=== PATIENT | female | born 1945 | race Caucasian/White ===

== ENCOUNTER 2016-08-16 13:16 | Inpatient (IN) ==
--- NOTE | 2016-08-16 13:58 | PROVIDER DOCUMENTATION ---
HPI-Neurological Disorder - General Chief Complaint: Stroke-Like Symptoms Stated Complaint: STROKE LIKE SX Time Seen by Provider: 08/16/16 13:35 Source: patient Allergies/Adverse Reactions: Patient Allergies Allergy/AdvReac Type Severity Reaction Status Date / Time No Known Allergies Allergy Verified 08/16/16 14:10 Home Medications: Home Medication List Medication Instructions Recorded Confirmed Last Taken Type Ibuprofen [Advil] 200 mg PO BID 08/16/16 08/16/16 Unknown History Omeprazole [Prilosec] 20 mg PO DAILY@0700 08/16/16 08/16/16 Unknown History - History of Present Illness-Neuro Nature of Presenting Problem: 70 y/o WF c no past medical history, c/o weakness on the left side and facial drooping of the left that began at 1930 last night. States she thought she was just tired from the day and symptoms would resolve. Symptoms have remained the same. First noticed the weakness after getting out of the shower. Not currently on any medications. Denies headache, changes in vision, chest pain, sob, abdominal pain, nausea, vomiting or diarrhea. No history of cardiac disease or stroke in the family. States she is active, working in her garden almost every day. Non smoker. Has a limping gait, stating the left foot feels as if it was asleep. Review of Systems - Adult - REVIEW OF SYSTEMS - ADULT Constitutional: reports: no symptoms reported. denies: chills, fever, fatique Eyes: reports: no symptoms reported. denies: decreased vision, blurred vision, double vision, eye pain Ears, Nose, Mouth & Throat: reports: no symptoms reported. denies: ear pain, nose pain, throat pain Cardiovascular: reports: no symptoms reported. denies: chest pain, palpitations Respiratory: reports: no symptoms reported. denies: cough, shortness of breath Gastrointestinal: reports: no symptoms reported. denies: abdominal pain, diarrhea, nausea, vomiting Genitourinary: reports: no symptoms reported. denies: dysuria, discharge, frequency, incontinence Musculoskeletal: reports: no symptoms reported. denies: muscle aches Integumentary: reports: no symptoms reported. denies: rash Neurological: reports: see HPI, loss of balance, numbness, paresthesia, slurred speech, other (left sided weakness). denies: ataxia, dizziness/vertigo, headache/migraines Psychiatric: reports: no symptoms reported Endocrine: reports: no symptoms reported Hematologic/Lymphatic: reports: no symptoms reported Allergic/Immunologic: reports: no symptoms reported All Other Systems: Reviewed and Negative Past History - Adult - PAST MEDICAL HISTORY-ADULT Review of Records: reports: Old Records Reviewed, Nursing Assessment Review, Medications Reviewed, Social history reviewed & non-contributory. Major Childhood Illnesses: reports: denies history Cardiovascular: reports: denies history Respiratory: reports: denies history Gastrointestinal: reports: denies history Obstetrical/Gynecological: reports: denies history Genitourinary: reports: denies history Musculoskeletal: reports: denies history Neurological: reports: denies history Endocrine/Immune: reports: denies history Other Conditions: reports: denies history - PRIOR SURGERIES/PROCEDURES Surgical/Procedure History: reports: reviewed, not pertinent - IMMUNIZATION STATUS Childhood Immunizations: See Nurse Assessment Flu Vaccine: See Nurse Assessment - FAMILY HISTORY Family History: reviewed, not pertinent - SOCIAL HISTORY Smoking: denies Substance Use: none/never Alcohol Use Frequency: never Living Situation: family Physical Exam- Neurological - Physical Exam-Neuro Initial Vital Signs Reviewed: Yes General Appearance: appears well, alert, no apparent distress Eye Exam: right eye: normal inspection, bilateral eye: PERRL, EOMI, other (left eye lid droop) HENMT: normocephalic/atraumatic, moist mucous membranes, TMs normal, pharynx normal, other (left facial droop and left tongue deviation) Head Injury: no evidence of injury Neck: non-tender, full range of motion, supple, normal inspection Respiratory: chest non-tender, lungs clear, normal breath sounds, no pleuratic chest pain, no respiratory distress, no accessory muscle use. negative: respiratory distress, decreased breath sounds, accessory muscle use, crackles, rales, rhonchi, wheezing Cardiovascular: normal peripheral pulses, regular rate, rhythm, no edema, no gallop, no murmur Abdominal Exam: normal bowel sounds, non tender, soft, no organomegaly, no pulsatile mass. negative: distended, guarding, rigid, rebound, tenderness Peripheral Pulses: radial (R): 2+, radial (L): 2+, dorsalis-pedis (R): 2+, dorsalis-pedis (L): 2+ Extremity: normal range of motion, non-tender, normal inspection, other ( strength 3/5 on the left as compared to 5/5 on the right for both upper and lower extremities.) collar baster Exam: normal hearing, normal speech, PERRL, facial asymmetry, facial droop, tongue deviation to L. negative: abnormal pupil position, gaze palsy, hearing deficit (R), hearing deficit (L) Motor/Sensory: no motor deficit, no sensory deficit, no pronator drift Neurologic: motor weakness, sensory deficit Integumentary: normal color, normal turgor, warm/dry Psych/Mental Status: normal mood/affect, normal thought content, normal thought process, oriented x 3 - Glascow Coma Scale Best Eye Response: (4) open spontaneously Best Verbal Response: (5) oriented Best Motor Response: (6) obeys commands Progress - PLAN OF CARE/RESULTS Progress/Plan/Lab Results: Vital Signs - 8 hr 08/16/16 13:27 Temperature 98.1 F Pulse Rate 90 Respiratory Rate 16 Blood Pressure 135/117 O2 Sat by Pulse Oximetry 98 Laboratory Results - last 24 hr 08/16/16 08/16/16 08/16/16 13:54 13:54 13:54 WBC 5.45 RBC 4.73 Hgb 14.0 Hct 41.6 MCV 87.9 MCH 29.6 MCHC 33.7 RDW Std Deviation 13.4 Plt Count 222 MPV 10.2 Immature Gran % (Auto) 0.0 Neut % (Auto) 53.5 Lymph % (Auto) 34.5 [place] % (Auto) 9.4 H Eos % (Auto) 2.0 Baso % (Auto) 0.6 Immature Gran # (Auto) 0.00 Neut # (Auto) 2.92 Lymph # (Auto) 1.88 [place] # (Auto) 0.51 Eos # (Auto) 0.11 Baso # (Auto) 0.03 Sodium 136 Potassium 5.9 H Chloride 99 Carbon Dioxide 18 L Anion Gap 19 BUN 17 Creatinine 1.1 H Estimated GFR/1.73 m2 49 BUN/Creatinine Ratio 15 Glucose 131 H Calculated Osmolality 275 Calcium 9.2 Total Bilirubin 0.19 L AST 45 H ALT 14 Alkaline Phosphatase 82 Troponin T < 0.010 Total Protein 7.0 Albumin 4.1 Globulin 2.9 Albumin/Globulin Ratio 1.4 Urine Source Urine Color Urine Turbidity Urine pH Ur Specific [place] Urine Protein Ur Glucose (Stick) Ur Ketones (Stick) Urine Blood Urine Nitrite Urine Bilirubin Urobilinogen Dipstick Urine Leukocytes Urine WBC (Auto) Urine RBC (Auto) U Epithel Cells (Auto) Urine Bacteria (Auto) Urine Opiates Screen Ur Oxycodone Screen Ur Methadone, Qual Ur Barbiturates Screen Ur Phencyclidine Scrn Ur Amphetamines Screen U Benzodiazepines Scrn Urine Cocaine Screen U Cannabinoids Screen 08/16/16 08/16/16 15:50 15:50 WBC RBC Hgb Hct MCV MCH MCHC RDW Std Deviation Plt Count MPV Immature Gran % (Auto) Neut % (Auto) Lymph % (Auto) [place] % (Auto) Eos % (Auto) Baso % (Auto) Immature Gran # (Auto) Neut # (Auto) Lymph # (Auto) [place] # (Auto) Eos # (Auto) Baso # (Auto) Sodium Potassium Chloride Carbon Dioxide Anion Gap BUN Creatinine Estimated GFR/1.73 m2 BUN/Creatinine Ratio Glucose Calculated Osmolality Calcium Total Bilirubin AST ALT Alkaline Phosphatase Troponin T Total Protein Albumin Globulin Albumin/Globulin Ratio Urine Source CLEAN CATCH Urine Color STRAW Urine Turbidity CLEAR Urine pH 5.5 Ur Specific [place] 1.008 Urine Protein NEGATIVE Ur Glucose (Stick) NEGATIVE Ur Ketones (Stick) NEGATIVE Urine Blood NEGATIVE Urine Nitrite NEGATIVE Urine Bilirubin NEGATIVE Urobilinogen Dipstick NORMAL Urine Leukocytes NEGATIVE Urine WBC (Auto) <10 Urine RBC (Auto) <10 U Epithel Cells (Auto) <10 Urine Bacteria (Auto) NEGATIVE Urine Opiates Screen NONE DETECTED Ur Oxycodone Screen NONE DETECTED Ur Methadone, Qual NONE DETECTED Ur Barbiturates Screen NONE DETECTED Ur Phencyclidine Scrn NONE DETECTED Ur Amphetamines Screen NONE DETECTED U Benzodiazepines Scrn NONE DETECTED Urine Cocaine Screen NONE DETECTED U Cannabinoids Screen NONE DETECTED Orders Category Date Time Status Cardiac Monitoring DIRECTED Care 08/16/16 13:44 Active Finger Stick Blood Sugar (ED) DIRECTED Care 08/16/16 13:44 Active Misc. NRSG Communication Order DIRECTED Care 08/16/16 13:44 Active Saline Loc NOW Care 08/16/16 13:44 Active CHEST-PORTABLE [RAD] Stat Exams 08/16/16 13:44 Draft HEAD W/O CONTRAST [CT] Stat Exams 08/16/16 13:44 Draft CBC WITH ELECTRONIC DIFF [HEME] Stat Lab 08/16/16 13:54 Completed COMPREHENSIVE METABOLIC PANEL [CHEM] Stat Lab 08/16/16 13:54 Completed PROTIME WITH INR [COAG] Stat Lab 08/16/16 14:03 Ordered PTT [COAG] Stat Lab 08/16/16 14:03 Ordered TROPONIN T Stat Lab 08/16/16 13:54 Completed URINALYSIS W/POSS RFLX CULT [URINALYSIS] Stat Lab 08/16/16 15:50 Completed URINE DRUG SCREEN Stat Lab 08/16/16 15:50 Completed Sodium Polystyrene [Kayexalate] Med 08/16/16 15:09 Discontinued 30 gm PO NOW ONE EKG [EKG] Stat Ther 08/16/16 13:44 Ordered Result Diagrams: 08/16/16 13:54 08/16/16 13:54 - CONSULTS/PCP/HOSPITALIST Notification #1 *Consult/PCP/Hospitalist*: Dr. Haley, hospitalist Time Discussed: 16:27 Reason/Comments: stroke like symptoms, left sided weakness Consult Disposition: Admit Departure - Departure Time of Disposition Decision: 16:27 DIAGNOSIS: Stroke-like symptoms Disposition: ADMITTED INPATIENT 09 Certified Medical Emergency: Emergent Condition: Stable Referrals and Follow-Ups: Brett Bishop MD [Primary Care Provider] - Attestation - Physician/ EVELIA Attestation Patient care was provided by Advanced Practice Provider:: Yes Advanced Practice Provider:: Shelia Bray Advanced Practice Provider documentation review:: The Mid-level provider documentation, treatment plan and medical decision making was reviewed by the physician who agrees with all treatment and medical decision making by the P.
[2016-08-16 14:18] LABS: MANUAL DIFF NEEDED? NO
[2016-08-16 14:21] LABS: BASO% 0.6 % (0.0-0.8); EOS# 0.11 X1000 (0.0-0.7); HEMATOCRIT 41.6 % (37.0-47.0); LYMPH# 1.88 X1000 (1.2-3.4); LYMPH% 34.5 % (20.5-51.1); MCH 29.6 PG (27-31); MCHC 33.7 g/dL (33-37); MCV 87.9 FL (81-99); MONO# 0.51 X1000 (0.11-0.59); MONO% 9.4 % (1.7-9.3); MPV 10.2 FL (7.4-10.4); NEUT% 53.5 % (42.2-75.2); PLT 222 X1000 (130-400); RBC 4.73 XMIL (4.2-5.4)
--- NOTE | 2016-08-16 14:48 | Diag Imaging Result Document ---
PROCEDURE NAME: HEAD W/O CONTRAST - 08/16/[address]: A CT dose reduction protocol was used. COMPARISON: None. FINDINGS: There is some moderate, patchy subcortical white matter hypodensity compatible with chronic microvascular disease. No intracranial mass or hemorrhage. The skull is intact. The sinuses, mastoids, and middle ears are clear. IMPRESSION: Chronic microvascular disease. No acute disease. [facility]
[2016-08-16 14:55] LABS: ALBUMIN 4.1 g/dL (3.5-5.0); CALCIUM 9.2 mg/dL (8.8-10.2); POTASSIUM 5.9 mmol/L (3.5-5.1); TOTAL BILIRUBIN 0.19 mg/dL (0.20-1.00)
--- NOTE | 2016-08-16 15:02 | Diag Imaging Result Document ---
PROCEDURE NAME: CHEST-PORTABLE - 08/16/2016 PORTABLE CHEST X-RAY: COMPARISON: None. FINDINGS: The lungs are normally expanded and clear. Heart size and mediastinal contours are normal. No pneumothorax or pleural effusion. IMPRESSION: Negative exam.
[2016-08-16] MEDS ORDERED: KAYEXALATE PO ONE (15:09)
[2016-08-16 16:03] LABS: URINE CULTURE NEEDED? NO; URINE MICRO REVIEW NEEDED? NO; URINE SOURCE CLEAN CATCH
[2016-08-16 16:11] LABS: BILIRUBIN URINE NEGATIVE (NEGATIVE); BLOOD URINE NEGATIVE (NEGATIVE); COLOR STRAW; GLUCOSE URINE NEGATIVE (NEGATIVE); LEUKOCYTES URINE NEGATIVE (NEGATIVE); NITRITE URINE NEGATIVE (NEGATIVE); PH URINE 5.5; PROTEIN URINE NEGATIVE (NEGATIVE); SP GRAVITY URINE 1.008; TURBIDITY URINE CLEAR (CLEAR); UROBILINOGEN URINE NORMAL (NORMAL)
[2016-08-16 16:13] LABS: UR EPITHELIAL CELLS <10 /HPF (<10); URINE BACTERIA NEGATIVE /HPF; URINE RBC <10 /HPF (<10); URINE WBC <10 /HPF (<10)
[2016-08-16 16:19] LABS: UR AMPHETAMINES QUAL NONE DETECTED (NONE DETECT); UR BARBITUATES QUAL NONE DETECTED (NONE DETECT); UR BENZODIAZEPIN QUAL NONE DETECTED (NONE DETECT); UR CANNABINOIDS QUAL NONE DETECTED (NONE DETECT); UR COCAINE QUAL NONE DETECTED (NONE DETECT); UR METHADONE QUAL NONE DETECTED (NONE DETECT); UR OPIATES QUAL NONE DETECTED (NONE DETECT); UR OXYCODONE QUAL NONE DETECTED (NONE DETECT); UR PCP QUAL NONE DETECTED (NONE DETECT)
[2016-08-16 17:12] LABS: INR 1.06; PROTIME 11.2 Seconds (9.2-11.7); PTT 28.8 Seconds (22.0-36.0)
[2016-08-16] MEDS ORDERED: ZOFRAN IV PRN (17:57)
[2016-08-16] MEDS ORDERED: NS 1,000 ML IV SCH (17:57)
[2016-08-16] MEDS ORDERED: APRESOLINE IV PRN (17:57)
[2016-08-16 18:09] LABS: ACETAMINOPHEN 3.7 ug/mL (10-30)
[2016-08-16 18:14] LABS: ACETONE SERUM NEGATIVE (NEGATIVE)
--- NOTE | 2016-08-16 18:29 | HISTORY AND PHYSICAL ---
PCP: Dr. Brett Bishop. CHIEF COMPLAINT: Stroke-like symptoms. HISTORY OF PRESENT ILLNESS: Mrs. Varela is a very pleasant 70-year-old female with a history of osteoarthritis and GERD as well as macular degeneration with blindness in the right eye who presents with acute onset left-sided weakness that began yesterday while she was getting out of the shower. She states that her arm was tingling and it felt like it had "fallen asleep." She went to bed around 8 o'clock p.m. last night. This morning she woke up with continued left arm weakness but also had left leg weakness and had difficulty walking. She was dropping pens and pencils, this concerned her and she called her granddaughter who told her to come to the ER. The granddaughter reports that she had left-sided facial drooping and slurred speech but no confusion. The patient denies any chest pain or shortness of breath, she denies nausea, vomiting, diarrhea. She denies any lower extremity edema or orthopnea. Interestingly, she had a retinal detachment and was seen by a retinal specialist who did an eye exam around 2 weeks ago and told her she had some blood vessels in the back of her eyes that were concerning for hypertensive eye disease. She followed up with Dr. Bishop around a week ago. She was tested for diabetes and hypertension and she reports everything was negative. On exam the patient is clinically positive for a stroke. She has significant left upper and lower extremity weakness with decreased sensation in the left side of her face, her left arm and left leg. She is awake, alert and oriented and she has a mild left-sided facial droop. Head CT was done in the ER and it did not show anything acute, EKG shows normal sinus rhythm. Her lab work is largely unremarkable with the exception of very mildly elevated creatinine. She is now going to be admitted for further treatment and evaluation. PAST MEDICAL HISTORY: 1. GERD. 2. Osteoarthritis. PAST SURGICAL HISTORY: Hysterectomy and bladder tacking. SOCIAL HISTORY: The patient is . She lives alone but has very strong family support. She denies any history of tobacco, alcohol or drug use. FAMILY HISTORY: Noncontributory. REVIEW OF SYSTEMS: Fourteen-point review of systems obtained, found to be negative with the exception of the HPI. ALLERGIES: No known drug allergies. HOME MEDICATIONS: Aleve 220 mg once daily, omeprazole 20 mg daily. ALLERGIES: No known drug allergies. PHYSICAL EXAMINATION: VITAL SIGNS: Blood pressure is 150/87, heart rate is 83, respiratory rate 20, O2 saturation 96% on room air, temperature is 98.1. GENERAL: This is a very pleasant 70-year-old female lying in hospital bed in no acute distress. NEUROLOGIC: The patient is awake and alert. She is oriented and follows commands. She has significant left-sided weakness, a left-sided palmar drift, left-sided facial droop and decreased sensation about the left arm and left leg. HEENT: Head is atraumatic and normocephalic. Her pupils are equal, round, and reactive to light. Oral mucosa is moist. Her trachea is midline. There is no JVD. CHEST: Clear to auscultation bilaterally. CV: Regular rate and rhythm. S1-S2 is noted. No murmurs, gallops, clicks, rubs. GI: Soft nondistended nontender. Bowel sounds positive. EXTREMITIES: Without edema, clubbing or cyanosis. Pulses are palpable bilaterally. DIAGNOSTIC DATA: Head CT is within normal limits nothing acute. Chest x-ray no acute process. WBC 5.45, hemoglobin 14, hematocrit 41.6, platelet count 222,000. INR 1.06. Sodium 136, potassium 5.9, chloride 99, CO2 18, anion gap 19, BUN 17, creatinine 1.1, glucose 131, bilirubin 0.19, AST 45, ALT 14, alkaline phosphatase 84, troponin negative. UA is negative for acute process. Toxicology screen is negative. ASSESSMENT AND PLAN: 1. Acute cerebrovascular accident: We will order definitive imaging on Thursday with MRI, will order an echocardiogram and carotids in the morning. Will start her on aspirin and statin now. Will admit with telemetry and continue neuro checks every 4 hours. We will allow for permissive hypertension only treating if her blood pressure goes above 210-220 systolic in the first 24 hours. We will consult social work and physical therapy as she will likely need rehab. We will also check a lipid panel in the morning as well as hemoglobin A1c, thyroid function and other basic tests. 2. Elevated anion gap metabolic acidosis: Unclear of the etiology at this time. She does have mildly elevated renal function but this is likely not causing an anion gap of 19, will check a lactic acid, salicylate, acetaminophen level and acetone. Will recheck labs in a few hours. 3. Hyperkalemia: Kayexalate has been given in the emergency room, we are going to recheck a BMP in the next hour or 2. 4. Gastroesophageal reflux disease: Will continue her proton pump inhibitor. 5. Macular degeneration/recent retinal tear chronic and stable, will continue to monitor. 6. Deep vein thrombosis prophylaxis with SCDs. Further recommendations to follow. Dictated by SCOT Bey for Jaskaran Haley MD cc: MD Jaskaran Castillo MD
[2016-08-16 18:35] LABS: HEMOGLOBIN A1C 4.4 % (4.8-6.0)
[2016-08-16 18:48] LABS: AGAP 17; BUN 17 mg/dL (8-22); CALCIUM 9.6 mg/dL (8.8-10.2); CHLORIDE 102 mmol/L (98-107); COSMO 283; POTASSIUM 3.5 mmol/L (3.5-5.1); SODIUM 141 mmol/L (136-145); TCO2 22 mmol/L (25-35)
[2016-08-16] MEDS: LIPITOR PO SCH (21:45)
[2016-08-16] MEDS: ASPIRIN PO SCH (21:45)
[2016-08-17] MEDS: NS 1,000 ML IV SCH ×2 (06:38→19:56)
[2016-08-17] MEDS: PRILOSEC PO SCH (06:38)
[2016-08-17 07:14] LABS: HEMATOCRIT 39.1 % (37.0-47.0); MCH 29.6 PG (27-31); MCHC 33.2 g/dL (33-37); MCV 89.1 FL (81-99); MPV 9.6 FL (7.4-10.4); RBC 4.39 XMIL (4.2-5.4)
[2016-08-17 07:36] LABS: AGAP 12; BUN 17 mg/dL (8-22); CALCIUM 9.2 mg/dL (8.8-10.2); CHLORIDE 100 mmol/L (98-107); COSMO 281; POTASSIUM 3.7 mmol/L (3.5-5.1); SODIUM 140 mmol/L (136-145); TCO2 28 mmol/L (25-35)
[2016-08-17] MEDS: LIPITOR PO SCH (09:13)
[2016-08-17] MEDS: ASPIRIN PO SCH (09:13)
--- NOTE | 2016-08-17 12:59 | PROGRESS NOTE ---
DATE: 08/17/2016 SUBJECTIVE: Today Ms. Varela refers to be doing fine. She actually denies any complaints and she is adamant that she wants to go home as soon as possible. OBJECTIVE: Vital signs: Blood pressure is 146/66, pulse of 83, respirations 14, temperature 98.0 degrees. General: Ms. Varela is a 70-year-old female. She is in bed, not in any distress. HEENT: Mucosa is pink and moist. Anicteric. Acyanotic. Neck: Supple. Chest: Clear. Cardiovascular: Regular rate and rhythm. There are no murmurs, no rubs, and no gallops. Abdomen: Soft. Extremities: No pedal edema. SUPERVISOR STATEMENT CLERKS: Patient is alert. She is oriented x4. She has very good executive functions. She continues to have significant left side hemiparesis with a power of about 4-/5. The right side is completely normal. The patient also has some mild drooling in the corner of the left side of the amount consistent with seventh nerve involvement. ASSESSMENT: 1. Cerebrovascular accident with left side hemiparesis, consistent with right hemispheric stroke. We are pending an MRI as well as other investigations for the stroke workup. Will continue with aspirin and statin and will be very liberal with blood pressure control. 2. Mild dehydration, improved. 3. Hyperkalemia, resolved. 4. Dyslipidemia. PLAN: In general I think Ms. Varela is clinically stable. There has not been any worsening of her neurological symptoms. Telemetry tracing has not showing any abnormal readings. We are waiting on the echo as well as the MRI and MRA for the complete workup. We did introduce the topical rehab with Ms. Varela. She is open to rehab but she prefers to do it on an outpatient basis or from home. She does not want to do any inpatient rehab, despite telling her about the benefits of being more aggressive as inpatient because of her acute neurological deficit. According to her, she thinks if she gets inpatient she will get more depressed and she will just do badly. Will communicate this to the marriage and family social worker so that the patient will be arranged for outpatient physical therapy if possible. We will also get occupational therapy to evaluate the patient. cc: Jaskaran Haley MD
--- NOTE | 2016-08-17 15:01 | ECHO REPORT ---
ORDER DATE: 08/17/2016 INDICATION: Acute CVA. FINDINGS: 1. Right atrium is normal size at 3.5. 2. Mild tricuspid regurgitation. 3. Normal RV size and systolic function. 4. Mild pulmonic insufficiency. 5. Normal left atrial size. 6. No mitral valve prolapse. No significant mitral regurgitation. 7. Normal LV size, end-diastolic dimension of 3.7. Suggestion of mild left ventricular hypertrophy with a posterior and interventricular septal wall thickness 1.3 cm each. Normal LV systolic function. Calculated EF 60%. 8. Aortic valve opens well. No evidence of stenosis or insufficiency. The valve is trileaflet. No evidence of aortic insufficiency. 9. Aorta appears normal in visualized segments. 10. No pericardial effusion is identified. cc: MD Jared Castillo CRNP
[2016-08-18] MEDS: PRILOSEC PO SCH (06:34)
--- NOTE | 2016-08-18 07:01 | EKG Report ---
Test Performed on : 08/16/2016 3:25:38 PM Test Reason : Stroke like symptoms Blood Pressure : / mmHG Vent. Rate : 080 BPM Atrial Rate : 080 BPM P-R Int : 160 ms QRS Dur : 084 ms QT Int : 378 ms P-R-T Axes : 028 001 016 degrees QTc Int : 435 ms Normal sinus rhythm. Moderate voltage criteria for LVH, may be normal variant Borderline ECG No previous ECGs available Unconfirmed Result
[2016-08-18 07:19] LABS: AGAP 14; BUN 14 mg/dL (8-22); CALCIUM 8.9 mg/dL (8.8-10.2); CHLORIDE 104 mmol/L (98-107); COSMO 283; POTASSIUM 3.8 mmol/L (3.5-5.1); SODIUM 141 mmol/L (136-145); TCO2 23 mmol/L (25-35)
[2016-08-18 08:17] LABS: HEMATOCRIT 38.4 % (37.0-47.0); MCH 29.7 PG (27-31); MCHC 33.9 g/dL (33-37); MCV 87.7 FL (81-99); MPV 10.1 FL (7.4-10.4); RBC 4.38 XMIL (4.2-5.4)
[2016-08-18] MEDS: LIPITOR PO SCH (09:47)
[2016-08-18] MEDS: ASPIRIN PO SCH (09:47)
[2016-08-18] MEDS: NS 1,000 ML IV SCH (09:48)
--- NOTE | 2016-08-18 10:41 | Diag Imaging Result Document ---
PROCEDURE NAME: MRA BRAIN W/O CONTRAST - 08/18/2016 MR ANGIOGRAM OF THE [place] OF [place]: TECHNIQUE: MIP images obtained. FINDINGS: There is normal flow in each distal internal carotid artery. Normal flow and filling of the middle cerebral arteries. The A1 segment on the left is more prominent than the one on the right. I believe there is a tiny anterior communicating artery. Normal filling of the anterior cerebral arteries. Normal filling of the basilar artery and the posterior cerebral arteries. There is a posterior communicating artery on the right. This is a normal variant. No abnormality to the posterior cerebral arteries. No aneurysms. No occlusions. The left vertebral artery is dominant compared to the right. IMPRESSION: No cerebral occlusion identified.
--- NOTE | 2016-08-18 10:45 | Diag Imaging Result Document ---
PROCEDURE NAME: MRI BRAIN W/O CONTRAST - 08/18/2016 MRI BRAIN WITHOUT: TECHNIQUE: Axial, sagittal, and coronal images obtained in multiple sequences. FINDINGS: There are at least three small recent right-sided infarcts and one left infarct. Only one measures over a few millimeters in size. This is located in the right basal ganglia measuring 1.4 cm in length. The patient has prominent microvascular ischemic changes. No mass or midline shift. No hydrocephalus. No epidural or subdural fluid collection. No sinus opacification although there is fluid in the right mastoid sinus. IMPRESSION: Prominent microvascular ischemic changes with several small recent infarcts. Emboli should be a consideration.
--- NOTE | 2016-08-18 15:52 | PROGRESS NOTE ---
DATE: 08/18/2016 SUBJECTIVE: Today Ms. Varela referred to be doing fine. Denies any pain or any shortness of breath. OBJECTIVE: Vital signs: pulse 70, respirations 18, temperature is 97.9 degrees. General Examination: Ms. Varela is a 70-year-old, female. She is in bed, in no distress. HEENT: Mucosa is pink and moist. Anicteric. Acyanotic. Neck : Supple. Chest: Good air entry bilaterally. No crepitations. No rhonchi. Cardiovascular: Regular rate and rhythm. There are no murmur, no rubs, no gallops. Abdomen: Soft, nontender. Extremities: No pedal edema. Central Nervous System: Patient is alert and oriented x4. There is still some mild weakness in the left side. Right side is completely normal. LABORATORY DATA: Chemistry is reviewed and is completely normal. CBC is also completely normal. An MRI of the brain showed prominent microvascular changes with several small recent infarcts. Emboli should be a consideration. ASSESSMENT: 1. Cerebrovascular accident with left-sided hemiparesis. An MRI done today shows at least 3 small recent right-sided infarcts and 1 on the left. There is also a right basal ganglia measuring 1.4. There is consideration for possible embolic phenomenon. We are, therefore, going to consult Cardiology to evaluate the patient with PIERCE with bubble study to make sure we do not miss any cardiac thrombus. Of note, the PIERCE was unremarkable. 2. Mild dehydration. This is improved. We will discontinue the IV fluids. 3. Hyperkalemia. Resolved. 4. Dyslipidemia. Continue with statin. 5. Hypertension. The patient is after 72 hours of cerebrovascular accident. We will start low- dose DIEGO inhibitors for blood pressure control. In general, Ms. Varela is a 70-year-old female who was admitted to the hospital on 08/16/2016 for stroke workup. She has a left side hemiparesis for which an MRI is consistent with the findings. Because of concern for embolic phenomenon we are going to keep the patient and request Cardiology to evaluate her with possible PIERCE with bubble study to ensure there is no cardiac thrombus. cc: MD KALEY Lazo
[2016-08-18] MEDS: PRINIVIL PO SCH (20:18)
[2016-08-19] MEDS: PRILOSEC PO SCH (06:23)
[2016-08-19 07:08] LABS: MANUAL DIFF NEEDED? NO
[2016-08-19 07:36] LABS: BASO% 0.6 % (0.0-0.8); EOS# 0.08 X1000 (0.0-0.7); EOS% 1.5 % (0.0-10.0); HEMATOCRIT 39.4 % (37.0-47.0); HEMOGLOBIN 13.3 g/dL (12.0-16.0); LYMPH# 1.78 X1000 (1.2-3.4); LYMPH% 32.8 % (20.5-51.1); MCH 29.6 PG (27-31); MCHC 33.8 g/dL (33-37); MCV 87.8 FL (81-99); MONO# 0.51 X1000 (0.11-0.59); MONO% 9.4 % (1.7-9.3); MPV 9.9 FL (7.4-10.4); NEUT% 55.7 % (42.2-75.2); PLT 258 X1000 (130-400); RBC 4.49 XMIL (4.2-5.4)
[2016-08-19 07:39] LABS: AGAP 13; BUN 17 mg/dL (8-22); CALCIUM 9.4 mg/dL (8.8-10.2); CHLORIDE 103 mmol/L (98-107); COSMO 285; POTASSIUM 3.8 mmol/L (3.5-5.1); SODIUM 142 mmol/L (136-145); TCO2 26 mmol/L (25-35)
[2016-08-19] MEDS: PRINIVIL PO SCH ×2 (09:09→20:56)
[2016-08-19] MEDS: ASPIRIN PO SCH (09:09)
[2016-08-19] MEDS: LIPITOR PO SCH (09:09)
--- NOTE | 2016-08-19 13:43 | PROGRESS NOTE ---
DATE: 08/19/2016 SUBJECTIVE: Patient reports feeling fine, regaining a little bit more strength in the left side of the body and able to walk with physical therapy. Denies any new neurological symptoms. OBJECTIVE: Vital Signs: Temperature 97.8 degrees, heart rate 81, respiratory rate 19, blood pressure 161/83, O2 saturation 96% on room air. General Examination: This is a 70-year-old female lying in bed in no acute distress. HEENT: Head is normocephalic and atraumatic. Anicteric sclerae and pale conjunctivae. Mucous membranes moist. Neck: Supple. No JVD noted. No carotid bruits. No lymphadenopathy. No thyromegaly. Cardiovascular: S1 and S2 heard. No murmurs, gallops, or rubs. Regular rate and rhythm. Respiratory: Clear bilaterally to auscultation. No work of breathing or using accessory muscles. Abdomen: Soft, nontender to palpation. Bowel sounds present. No organomegaly. Extremities: No clubbing, cyanosis, or edema. Peripheral pulses present in both legs. Neurological: Mild weakness in the left side of her body. Her right side is completely normal. Patient is alert and oriented x3. LABORATORY DATA: The CBC and the BMP are completely normal from today. ASSESSMENT AND PLAN: 1. Cerebrovascular accident with left-sided hemiparesis. As we mentioned before, MRI has shown 3 small recent right-sided infarcts that suggested possible embolic phenomenon, so a transthoracic echocardiogram was ordered, but because we can order a PIERCE, Dr. Larose from Cardiology has been consulted. I do not see any scheduled procedure done, so we will talk with the CV laboratory to see that it can be done tomorrow. 2. Mild dehydration. Patient on IV fluids and she is doing fine. 3. Hyperkalemia, resolved. 4. Dyslipidemia. Patient continues with the statin. 5. Hypertension. Because we are out of the first 72-hour window period for permissive hypertension and considering that this patient is having 160 to 170 blood pressure, we are going to adjust the doses of blood pressure medicines. At this time, she is on 2.5 mg of lisinopril b.i.d. We will definitely increase it to 10 b.i.d. and we will see how this patient does. Patient is doing fine and if the PIERCE is normal, we are going to discharge this patient home. She is supposed to go back to a rehabilitation center every day to receive physical therapy at least 2 hours per day, so this patient will need to go to a rehabilitation facility. cc: Wali Ruiz MD
--- NOTE | 2016-08-19 15:10 | CONSULTATION ---
DATE OF CONSULTATION: 08/19/2016 HISTORY OF PRESENT ILLNESS: Ms. Varela is 70 years old, and it looks like she has had a stroke. History from the patient is that she was feeling well until she stepped out of the shower 4 nights ago and noticed heaviness in the left limbs. She decided to go to bed. She thought she was a little bit improved overnight and the next morning, but later in the morning noticed sudden increased weakness in the left limbs to the point that she dropped a bowl of cereal from the left hand. She came to the hospital and was admitted. She believes her left-sided weakness is a little bit better now than at onset. Still, she believes she was doing better on the morning after initial onset than now. She did not have vision disturbance, altered consciousness, memory gap, headache , right-sided problems. Family noticed left facial drooping and slurred speech. She bit her lip on the left side, but did not have trouble swallowing. There is no history of previous stroke, seizure, serious head injury, other neurologic event. She did not have associated chest pain, diaphoresis, nausea, palpitations. Cardiology workup is in progress. Brain MRI is reported to show 3 right-sided and 1 left-sided small acute infarctions. Brain MRA was unremarkable. She reports verbal report that carotid ultrasound was okay, but I do not have that written report. She reports no previous management for hypertension, diabetes mellitus, dyslipidemia. She never smoked cigarettes. She does not use ethanol. She has never had heart disease of any sort. On exam, she is awake, alert, attentive and appropriate. Speech is not dysarthric. Language function is intact. Memory is good. Head and neck are unremarkable. Visual murillo are full, tested grossly by confrontational finger counting. Extraocular movements are full. Facial motility is good bilaterally, but the left nasal labial fold is less prominent than the right. Gag is intact. Tongue is midline. Hearing is good. Shoulder shrug is diminished on the left. She has good power in the right limbs. I can overcome the left deltoid grading 3/5, wrist extensor, 3/5, foundry hand 3/5, iliopsoas 4/5, and anterior tibialis 4/5. Tone is increased in the left arm. She did rapid alternating movements better with the right hand than the left. She did better with right hand [id number] than the left. She reports diminished pinprick and light touch appreciation over the left hand and foot compared to the right. She reports diminished proprioception at the left index finger PIP joint and at the left great toe MTP joint. I did not test her gait. Reflexes are 2+ at the knees and ankles, 1+ symmetrically at the wrists. Plantar response is flexor on the right and silent on the left. IMPRESSION: Left hemiparesis with some sensory findings and loss of proprioception. Report of sudden onset, staggering course, MRI findings all consistent with acute ischemic infarction. MRI raises question of cardioembolic explanation. Her blood pressures have been elevated as high as 190s systolic a few days ago, mostly 150s to 160s today. Her blood sugar has been minimally elevated 136 on presentation. Her lipid profile shows borderline total cholesterol 202, LDL 146, VLDL 23, HDL 47. I suspect that she has hypertension, possibly diabetes mellitus and dyslipidemia. I would continue cautious management of blood pressure, continue atorvastatin as has been started, treat blood sugar aggressively if that gets elevated, continue aspirin and consider adding DVT prophylaxis unless there are contraindications to that. Further plans will depend on the results of her cardiac workup and on her clinical course. Thanks for asking me to see Ms. Varela. cc: MD KALEY Camarena III
[2016-08-19] MEDS ORDERED: ANALGESIC BALM TOP PRN (20:34)
[2016-08-20] MEDS ORDERED: PRILOSEC PO SCH (08:00)
--- NOTE | 2016-08-20 08:13 | PROGRESS NOTE ---
DATE: 08/20/2016 Ms. Varela is awake and alert. She reports noticing that her left-sided strength is a little bit improved. On bedside exam, she does a little better with rapid alternating movements and with left [id number] testing this morning than she did yesterday. Speech remains clear. Visual field is full on careful testing on the left. She has cardiology workup in progress. I do not have any new suggestion today from a neurologic standpoint. Thanks for asking me to see Ms. Varela. cc: Dino Price III, MD
[2016-08-20] MEDS: ASPIRIN PO SCH (09:14)
[2016-08-20] MEDS: PRINIVIL PO SCH (09:15)
[2016-08-20] MEDS: LIPITOR PO SCH (09:15)
[2016-08-20] MEDS ORDERED: DIPRIVAN 1% ONE (09:46)
[2016-08-20] MEDS ORDERED: XYLOCAINE 4% TOPICAL SOLUTION ONE (09:48)
[2016-08-20] MEDS ORDERED: SODIUM CHLORIDE 0.9% 20 ML ONE (09:48)
[2016-08-20] MEDS ORDERED: XYLOCAINE 2% VISCOUS ONE (09:48)
[2016-08-20] MEDS ORDERED: HURRICAINE SPRAY (DOSE) ONE (09:48)
[2016-08-20] MEDS ORDERED: FENTANYL ONE (09:49)
--- NOTE | 2016-08-20 11:16 | CONSULTATION ---
DATE OF CONSULTATION: 08/20/2016 IMPRESSIONS: 1. Recent right middle cerebral artery cerebrovascular accident with left-sided hemiparesis. Patient presented approximately 24 hours after onset of symptoms. 2. Left retina pathology described by the patient as reported by her data processor consisting of hemorrhages. Etiology not clear, but cannot entirely exclude the possibility of embolic phenomenon. 3. No history of hypertension, hypercholesterolemia, or diabetes mellitus. Patient is a nonsmoker. Limited risk factors for atherosclerosis. RECOMMENDATIONS: Agree with plans to pursue transesophageal echocardiography to screen for potential cardiac source of emboli. The rationale for this approach, along with potential hazards were discussed with the patient and she wished to proceed. HISTORY: This 70-year-old white female with no prior cardiovascular history, gastroesophageal reflux, and macular degeneration with blindness in the right eye was admitted because of acute left-sided weakness that began 1 day prior to her presentation and persisted. She has been found to have right middle cerebral artery cerebrovascular accident. Cardiology was consulted to pursue transesophageal echocardiography to rule out cardiac source of emboli. She relates that she has had blindness in the right eye due to macular degeneration. She has been followed for pathology in her left eye, as she has the same disease process in her left eye. She relates that she was walking in a store a few weeks ago and noticed some visual disturbance. She sought followup with her data processor. Indeed, she was felt to have a retinal detachment, but there were also reported some retinal hemorrhages that might have been vascular in origin. Her data processor advised her to have medical followup. She has had fairly recent medical evaluation, which revealed no abnormalities. Then, 24 hours prior to her presentation, she developed left-sided weakness and numbness involving her left leg and left arm. This developed in the morning. She felt she had strained herself in some way and started resting. Symptoms seemed to wax and wane somewhat, but not completely resolve. By the next morning, she contacted her daughter, who brought her to the emergency room for evaluation. She has no chest discomfort or palpitations. PAST MEDICAL HISTORY: 1. Negative for hypertension, negative for diabetes, and negative for hypercholesterolemia. 2. Gastroesophageal reflux. 3. Osteoarthritis. PAST SURGICAL HISTORY: Hysterectomy and bladder tack procedure. ALLERGIES: She has no known drug allergies. MEDICATIONS PRIOR TO ADMISSION: As listed, include Aleve and omeprazole. SOCIAL HISTORY: She is . Her about a year ago. She does not smoke nor use alcohol. FAMILY HISTORY: Negative for premature cardiac disease. REVIEW OF SYSTEMS: Pulmonary: Negative. Gastrointestinal: Noteworthy for gastroesophageal reflux. Otherwise, negative. Constitutional: Negative. The remainder of the review of systems negative/noncontributory beyond history of present illness, with 14 total systems reviewed. PHYSICAL EXAMINATION: General: This is a pleasant, older, white female in no distress. Vital Signs: As recorded, are stable. HEENT: Extraocular movements intact. Mucous membranes moist. Neck: Supple, without jugular venous distention. There are no carotid bruits. Chest: Clear to auscultation. Cardiac: Regular rate and rhythm, without appreciable murmur or gallop. Abdomen: Soft, nontender. Bowel sounds are normal. Extremities: Without edema. Neurologic: Reveals mild left leg weakness and moderate left arm weakness. Speech is fluent. ELECTROCARDIOGRAM: EKG demonstrates sinus rhythm and is otherwise within normal limits. cc: Marky Villegas MD
[2016-08-20 11:47] VITALS: BP 135/65
--- NOTE | 2016-08-21 07:17 | DISCHARGE SUMMARY ---
ADMISSION DATE: 08/16/2016 DISCHARGE DATE: 08/20/2016 CODE STATUS: DNR level 1. CONSULTATIONS: 1. Dino Price III, MD with Neurology 2. Marky Villegas MD with Cardiology PERTINENT PROCEDURES: 1. Head CT showed chronic microvascular disease. No acute disease. 2. Echocardiogram showed an EF of 60%. 3. Brain MRI showed prior microvascular ischemic changes. Several small recent infarcts. Emboli should be a consideration. 4. Brain MRA showed no cerebral occlusion identified. DISCHARGE DIAGNOSES: 1. Cerebrovascular accident with left-sided hemiparesis. MRI had shown 3 small recent right- sided infarcts that suggest a possible embolic phenomenon. Patient did undergo a transesophageal echocardiogram per Cardiology. It revealed no evidence of cardiac source of emboli. They recommended outpatient 30-day event recorder to provide additional screening for the possibility of paroxysmal atrial fibrillation. 2. Mild dehydration, resolved. 3. Hyperkalemia, resolved. 4. Dyslipidemia. Continue statin. 5. Hypertension, stable. HOSPITAL COURSE: Briefly, Ms. Varela is a 70-year-old, female with a history of osteoarthritis, GERD, as well as macular degeneration with blindness in the right eye, who presented with acute onset of left-sided weakness that began the day before admission. The patient states that after getting out of the shower, her arm was tingling and it felt like it had "fall asleep." She went to bed around 8 p.m. In the morning, she woke up, she continued to have left arm weakness and also had left leg weakness and had difficulty walking. She was dropping pens and pencils, so she came to the ED, where they reported some left-sided facial drooping and slurred speech, but no confusion. The patient had had a retinal detachment and was seen by a retinal specialist, who did an eye exam 2 weeks ago and told her that she had some blood vessels in the back of her eyes that were concerning for hypertensive eye disease. She was followed by Dr. Bishop around a week ago. Was tested for diabetes and hypertension, and she reports everything was negative. On exam, the patient was clinically positive for a stroke. She has significant left and upper and lower extremity weakness with decreased sensation on the left side of her face, her left arm and her left leg. The patient was awake, alert and oriented. She did have a mild left facial droop. Head CT in the ED did not show anything acute. EKG showed normal sinus rhythm. Her laboratory data was largely unremarkable with the exception of mildly elevated creatinine. The patient was admitted for a CVA. She underwent a brain MRI that did show several small recent infarcts and that emboli should be a consideration. Cardiology was consulted along with neuro. She underwent a PIERCE with Dr. Villegas. The procedure did not show any evidence of cardiac source of emboli. They did arrange for an outpatient 30-day event recorder to provide additional screen for the possibility of paroxysmal atrial fibrillation. Patient was started on aspirin and a statin as well as an DIEGO inhibitor. Social Work was consulted in an reference to discharge planning. Patient states that she will be doing outpatient therapy with [facility] that was set up through [facility] [employer] [facility]. She is being discharged home today. VITAL SIGNS AT TIME OF HER DISCHARGE: Temperature is 97.9 degrees, heart rate 85, respirations 20, blood pressure 135/65, O2 97% on room air. DISCHARGE DIET: Healthy heart. DISCHARGE MEDICATIONS: 1. Aspirin 325 mg p.o. daily. 2. Lipitor 40 mg p.o. daily. 3. Prinivil 5 mg p.o. b.i.d. 4. Prilosec 20 mg p.o. daily. FOLLOWUP: Patient is being discharged home. She will follow outpatient therapy. She will need to follow up with Dr. Villegas in 5 weeks. They will arrange for her 30-day cardiac event device, as well as her primary care physician, Dr. Brett Bishop in 1 week. She can follow up with Dr. Price if she chooses. Patient can return to the ED for any worsening of symptoms. DISCHARGE TIME: Thirty four minutes. Dictated by SCOT Olguin for Wali Ruiz MD cc: Wali Ruiz MD [facility]ALTHTommy
--- NOTE | 2016-08-21 15:21 | Transesophageal Echocardiogram ---
DATE: 08/20/2016 HISTORY: Patient underwent transesophageal echocardiography this morning. Preliminary report is as follows: 1. Aortic, mitral, tricuspid, and pulmonic valves are without structural abnormality with mild mitral regurgitation and trace tricuspid regurgitation. 2. Normal left ventricular dimensions demonstrated. Left ventricular ejection fraction appears to be at least 55% without wall motion abnormality. Left atrium, right atrium, and right ventricle are normal size with grossly preserved right ventricular systolic performance. All 4 cardiac chambers including left atrial appendage are free of intracardiac thrombus. 3. Interatrial septum appears intact without evidence of interatrial shunting on color Doppler. Intravenous agitated saline contrast study ("bubble study") negative for any [id number] intracardiac shunting. 4. No pericardial effusion. 5. Descending thoracic aorta, aortic arch, and aortic root are normal in size without evidence of atheromata. IMPRESSION: Transesophageal echocardiography reveals no evidence of cardiac source of emboli. RECOMMENDATIONS: We will arrange for outpatient 30 day event recorder to provide additional screening for the possibility of paroxysmal atrial fibrillation. cc: Marky Villegas MD
--- NOTE | 2016-08-22 13:33 | Carotid Study ---
DATE: 08/17/2016 PROCEDURE: Carotid duplex study. REFERRING PHYSICIAN: Jaskaran Haley MD READING PHYSICIAN: Sam Rock MD FARM REPORTER: Floyd INDICATION: Stroke, left-sided numbness and weakness. OBSERVED DATA RIGHT LEFT Brachial Blood Pressure Carotid Pulse Bruits: Carotid/Sub DIAGRAM OF ULTRASOUND IMAGING R L RIGHT INT EXT INT EXT LEFT Waylon (cm/s) Waylon (cm/s) Subclavian 91/0 Subclavian 118/0 CCA Proximal 95/13 CCA Proximal 117/60 CCA Distal 71/12 CCA Distal 74/17 Bulb 64/13 Bulb 75/18 ICA Proximal 63/16 ICA Proximal 89/17 ICA Mid 88/22 ICA Mid 106/31 ICA Distal 83/23 ICA Distal 90/20 ECA 67/10 ECA 83/9 Vertebral 47/8 Vertebral 59/13 ICA/CCA Ratio 0.9 ICA/CCA Ratio 0.9 % Stenosis 0 to 39% % Stenosis 0 to 39% FINDINGS: There is a rather flat calcific plaque at the right carotid bulb without a corresponding stenosis of any significance. No noticeable plaque disease in the left carotid system is identified. There is antegrade vertebral flow bilaterally. INTERPRETATION: Mild plaque disease in the right carotid bulb, but there are no hemodynamically significant lesions. cc: MD Jared Kirkpatrick CRNP
== END 2016-08-20 14:18 | disposition home or self-care (01) ==
LOC: ED 13:16 → SUATTDRO 17:30 → 3N 17:30
PROVIDERS: ATTEND Internal Medicine